=== PATIENT | female | born 1985 | race Caucasian/White ===

== ENCOUNTER 2018-04-29 13:26 | Emergency (ER) | payer MEDICAID ==
[~2018-04-29] VITALS: Ht 160 cm; Wt 72.6 kg
[2018-04-29 13:47] VITALS: BP 135/66
--- NOTE | 2018-04-29 13:50 | NUR ---
PT TAKEN TO BED 4 AT THIS TIME
--- NOTE | 2018-04-29 13:51 | NUR ---
PATIENT PRESENTS TO ED WITH RASH ON UPPER TORSO. PT STATES RASHED PRESENTED ON MONDAY. DENIES N/V/D; SKIN IS PINK/WARM/DRY; SMALL, ROUND, FLUID FILLED RASHNOTED ON PTS TRUNK AND LOWER BACK; AAOX4 WITH EVEN AND STEADY GAIT; LUNGS CLEAR BL; HR EVEN AND REGULAR; PT DENIES ANY FEVER, CP, SOB, OR COUGH AT THIS TIME; PATIENT STATES PAIN OF 0/10 AT THIS TIME; VSS; PATIENT POSITIONED FOR COMFORT; HOB ELEVATED; BEDRAILS UP X1; BED DOWN. ER MD MADE AWARE OF PT STATUS.
[2018-04-29 14:52] VITALS: BP 128/64
== END 2018-04-29 14:53 | disposition home or self-care (01) ==
LOC: MED 13:26
DX: T78.40XA Allergy, unspecified, initial encounter (principal); X58.XXXA Exposure to other specified factors, initial encounter; Z90.49 Acquired absence of other specified parts of digestive tract
CPT/HCPCS: 99283

== ENCOUNTER 2022-11-16 19:41 | Emergency (ER) | payer MEDICAID ==
[~2022-11-16] VITALS: Ht 157.5 cm; Wt 74.8 kg
[2022-11-16 20:10] VITALS: BP 123/71; PULSE 75; RESP 16; TEMP 98.7; O2SAT 100
--- NOTE | 2022-11-16 20:15 | NUR ---
pt to [facility]eron[facility]
--- NOTE | 2022-11-16 22:14 | NUR ---
PT TO BED #11
--- NOTE | 2022-11-16 22:20 | NUR ---
UA OBTAINED AND SENT TO LAB
[2022-11-16 22:28] LABS: APPEARANCE,URINE CLEAR (CLEAR); BILIRUBIN,URINE NEGATIVE (NEGATIVE); BLOOD, URINE 2+ (NEGATIVE); COLOR,URINE YELLOW (YELLOW); LEUKOCYTE ESTERASE ,URINE NEGATIVE (NEGATIVE); NITRITE, URINE NEGATIVE (NEGATIVE); PH,URINE 6.5 (5.0-9.0); UGLUCOSE NEGATIVE (NEGATIVE)
[2022-11-16 22:31] LABS: RBC,URINE TOO NUMEROUS TO COUN /HPF (0-5)
[2022-11-16] MEDS ORDERED: ACETAMINOPHEN EXTRA STRENGTH 500 MG TAB PO ONE (22:45)
[2022-11-16] MEDS ORDERED: CYCLOBENZAPRINE 10 MG TAB PO ONE (22:45)
[2022-11-16] MEDS ORDERED: KETOROLAC 30 MG/ML VIAL IM ONE (22:45)
[2022-11-16] MEDS ORDERED: LIDOCAINE 5% 1 EA PATCH TP ONE (22:54)
[2022-11-17] MEDS ORDERED: IBUP-2213 PO (00:19)
[2022-11-17] MEDS ORDERED: CYCL-711 PO (00:19)
[2022-11-17] MEDS ORDERED: ACET-10509 PO (00:19)
[2022-11-17 00:25] VITALS: BP 122/71; PULSE 79; RESP 16; O2SAT 98
--- NOTE | 2022-11-17 00:25 | NUR ---
Patient discharged with v/s stable. Written and verbal after care instructions given and explained. Patient alert, oriented and verbalized understanding of instructions. Ambulatory with steady gait. All questions addressed prior to discharge. ID band removed. Patient advised to follow up with PMD. Rx of Tylenol, Flexeril and Ibuprofen given. Patient educated on indication of medication including possible reaction and side effects. Opportunity to ask questions provided and answered.
[2022-11-17] MEDS ORDERED: LIDOCAINE 5% 1 EA PATCH TP SCH (09:00)
== END 2022-11-17 00:25 | disposition home or self-care (01) ==
LOC: MED 19:41
DX: M54.41 Lumbago with sciatica, right side (principal); Z79.899 Other long term (current) drug therapy; Z79.1 Long term (current) use of non-steroidal anti-inflammatories (NSAID)
CPT/HCPCS: 81001; 81025; 87086; 96372; 99283; J1885